=== PATIENT | male | born 1975 | race Asian ===

== ENCOUNTER 2019-08-26 13:31 | Emergency (ER) | payer OTHER ==
[~2019-08-26] VITALS: Ht 172.7 cm; Wt 97.5 kg
[2019-08-26 14:39] VITALS: BP 124/75
== END 2019-08-26 14:54 | disposition home or self-care (01) ==
LOC: ER 13:36
DX: Z03.818 Encounter for observation for suspected exposure to other biological agents ruled out (principal)
CPT/HCPCS: 99283; C9803; U0003

== ENCOUNTER 2019-09-09 12:44 | Emergency (ER) | payer OTHER ==
[~2019-09-09] VITALS: Ht 172.7 cm; Wt 97.5 kg
[2019-09-09 12:51] VITALS: BP 132/81
--- NOTE | 2019-09-09 13:21 | NUR ---
COVID SWAB DONE AND SENT TO LAB
--- NOTE | 2019-09-09 13:22 | NUR ---
Patient discharged to home in stable condition. Written and verbal after care instructions given. Patient verbalizes understanding of instruction. Pt ambulatory with a steady gait
== END 2019-09-09 13:23 | disposition home or self-care (01) ==
LOC: ER 12:46
DX: Z11.59 Encounter for screening for other viral diseases (principal)
CPT/HCPCS: 99283; C9803; U0003

== ENCOUNTER 2019-10-21 11:49 | Emergency (ER) | payer OTHER ==
[~2019-10-21] VITALS: Ht 170.2 cm; Wt 98.9 kg
[2019-10-21 12:00] VITALS: BP 143/74
--- NOTE | 2019-10-21 12:28 | NUR ---
covid swab sent. Patient did not wait for paperworks. Patient discharged to home in stable condition. Written and verbal after care instructions given. Patient verbalizes understanding of instruction.
== END 2019-10-21 12:28 | disposition home or self-care (01) ==
LOC: ER 11:50
DX: Z20.828 Contact with and (suspected) exposure to other viral communicable diseases (principal)
CPT/HCPCS: 99283; C9803; U0003

== ENCOUNTER 2019-11-09 14:53 | Emergency (ER) | payer OTHER ==
[~2019-11-09] VITALS: Ht 170.2 cm; Wt 98.9 kg
[2019-11-09 14:54] VITALS: BP 128/81
--- NOTE | 2019-11-09 15:20 | NUR ---
covid 19 swab collected and sent to lab
--- NOTE | 2019-11-09 15:29 | NUR ---
Patient discharged to home in stable condition. Written and verbal after care instructions given. Patient verbalizes understanding of instruction.
== END 2019-11-09 15:29 | disposition home or self-care (01) ==
LOC: ER 14:53
DX: Z20.828 Contact with and (suspected) exposure to other viral communicable diseases (principal)
CPT/HCPCS: 99283; C9803; U0003

== ENCOUNTER 2019-11-29 15:00 | Emergency (ER) | payer OTHER ==
[~2019-11-29] VITALS: Ht 170.2 cm; Wt 99.8 kg
[2019-11-29 15:00] VITALS: BP 122/69
== END 2019-11-29 15:47 | disposition home or self-care (01) ==
LOC: ER 15:10
DX: Z20.828 Contact with and (suspected) exposure to other viral communicable diseases (principal)
CPT/HCPCS: 99283; C9803; U0003

== ENCOUNTER 2019-12-16 10:38 | Emergency (ER) | payer OTHER ==
[~2019-12-16] VITALS: Ht 167.6 cm; Wt 99.8 kg
[2019-12-16 10:39] VITALS: BP 124/79
--- NOTE | 2019-12-16 10:57 | NUR ---
Patient discharged to home in stable condition. Written and verbal after care instructions given. Patient verbalizes understanding of instruction.
== END 2019-12-16 10:59 | disposition home or self-care (01) ==
LOC: ER 10:40
DX: Z20.828 Contact with and (suspected) exposure to other viral communicable diseases (principal)
CPT/HCPCS: 99283; C9803; U0003

== ENCOUNTER 2019-12-29 14:50 | Emergency (ER) | payer OTHER ==
[~2019-12-29] VITALS: Ht 170.2 cm; Wt 99.8 kg
[2019-12-29 15:00] VITALS: BP 123/85
--- NOTE | 2019-12-29 15:54 | NUR ---
COVID SWAB SENT. Patient discharged to home in stable condition. Written and verbal after care instructions given. Patient verbalizes understanding of instruction.
== END 2019-12-29 15:55 | disposition home or self-care (01) ==
LOC: ER 14:50
DX: Z20.828 Contact with and (suspected) exposure to other viral communicable diseases (principal)
CPT/HCPCS: 99283; C9803; U0003

== ENCOUNTER 2020-01-26 10:32 | Emergency (ER) | payer OTHER ==
[~2020-01-26] VITALS: Ht 170.2 cm; Wt 99.8 kg
[2020-01-26 11:05] VITALS: BP 129/80
== END 2020-01-26 11:09 | disposition home or self-care (01) ==
LOC: ER 10:33
DX: Z20.828 Contact with and (suspected) exposure to other viral communicable diseases (principal)
CPT/HCPCS: 99283; C9803; U0003